=== PATIENT | male | born 2005 | race Caucasian/White ===

== ENCOUNTER → 2025-08-15 15:14 | Outpatient (BNVA) | payer SELFPAY | PROVIDERS: PCP Nurse Practitioner Family; Visit Provider Nurse Practitioner Family | DX: R59.1 Generalized enlarged lymph nodes (principal) | CPT/HCPCS: 81000; 87491; 87591; 87661 ==

== ENCOUNTER 2025-08-29 09:45 | Outpatient (CLI) | payer SELFPAY ==
--- NOTE | 2025-08-29 10:15 | US_ITS ---
WS: [id number] US pelvic limited [id number] HISTORY: R59.1 - Generalized enlarged lymph nodes, male pelvis. COMPARISON: None available. Ultrasound directed to the LEFT inguinal canal. There are numerous lymph nodes along the inguinal canal. These lymph nodes are hypoechoic with loss of the normal fatty hilum. Cortical thickening. The largest lymph node measures 1.5 x 1.2 x 2.0 cm. There are numerous hypoechoic lymph nodes. These lymph nodes maintain their normal reniform shape. No imaging of the RIGHT inguinal canal. US/US pelvic limited [id number] IMPRESSION: Abnormal LEFT inguinal lymph nodes. These lymph nodes have lost their normal fa tty hilum with diffuse cortical thickening. These may be reactive lymph nodes f rom an infectious process. Neoplastic causes of lymphadenopathy should also be included.
== END 2025-08-29 09:46 | disposition home or self-care (01) ==
LOC: RAD 09:46
PROVIDERS: PCP Nurse Practitioner Family; Visit Provider Nurse Practitioner Family
DX: R59.1 Generalized enlarged lymph nodes (principal)
CPT/HCPCS: 76857

== ENCOUNTER → 2025-09-19 13:36 | Outpatient (BNVA) | payer SELFPAY | PROVIDERS: PCP Nurse Practitioner Family; Visit Provider Nurse Practitioner Family | DX: R59.1 Generalized enlarged lymph nodes (principal) | CPT/HCPCS: 80053; 85007; 85027; 85651; 86140; 86592 ==